=== PATIENT | female | born 1935 | race Caucasian/White ===

== ENCOUNTER 2019-11-06 16:18 | Inpatient (IN) | payer MEDICARE, MEDICAID ==
[~2019-11-06] VITALS: Ht 152.4 cm; Wt 84.4 kg
[~2019-11-06 16:18] MED LIST: ALEN70SO3 PO; ASPI-1497 PO; ATEN50TA PO; BUPR150T9 PO; DAILY-VITE PO; DIPH25CA83 PO; DONE10TA43 PO; FLUO40CA49 PO; GEMF600T5 PO; HYDR25TA PO; LEVO750T46 PO; PHEN95TA44 PO; RANI300T4 PO; SUCR1TAB PO
[2019-11-06 19:41] LABS: HEMATOCRIT. 36.5 % (36.0-48.0); HEMOGLOBIN. 12.5 g/dL (12.0-16.0); MEAN CORPUSCULAR HEMOGLOBIN 30.5 pg (28.0-32.0); MEAN CORPUSCULAR VOLUME 88.6 fL (81.0-99.0); MEAN PLATELET VOLUME 9.1 fl (7.4-10.4); PLATELET 229 x1000/uL (130-400); RED BLOOD CELL COUNT 4.12 mill/uL (4.2-5.4); RED CELL DISTRIBUTION WIDTH 13.2 % (11.6-14.6)
[2019-11-06 19:51] LABS: CHLORIDE 98 mEq/L (98-107)
[2019-11-06 20:38] LABS: PLATELET ESTIMATE NORMAL
[2019-11-06] MEDS ORDERED: POTASSIUM CHLORIDE 20MEQ/PACKET PO ONE (21:00)
[2019-11-06] MEDS ORDERED: AZITHROMYCIN 500 MG in DEXT 5% WATER 250 ML IV SCH (21:00)
[2019-11-06] MEDS ORDERED: CEFTRIAXONE 1 G PREMIX 50 ML IV ONE (21:00)
[2019-11-06] MEDS ORDERED: POTASSIUM CHLORIDE INJ 40 MEQ in DEXT 5% WATER 250 ML IV ONE (21:00)
[2019-11-06] MEDS ORDERED: MAGNESIUM 2 G PREMIX 50 ML IV ONE (21:00)
[2019-11-07 01:15] VITALS: BP 129/55
[2019-11-07] MEDS ORDERED: MEMA10TA55 MT (01:32)
[2019-11-07] MEDS ORDERED: GABA-529 MT (01:32)
[2019-11-07] MEDS ORDERED: PRAV20TA57 MT (01:32)
[2019-11-07 04:00] VITALS: BP 105/56
[2019-11-07] MEDS ORDERED: MEDICATION NOT ON FORMULARY EA (Ranitidine Hcl 300 MG) PO PRN (05:30)
[2019-11-07] MEDS: SODIUM CHLORIDE 0.9% 1,000 ML IV SCH ×2 (06:58→16:43)
[2019-11-07] MEDS: ASPIRIN 81MG EC TABLET PO SCH (08:45)
[2019-11-07] MEDS: MEMANTINE HCL 10MG TABLET PO SCH ×2 (08:45→16:41)
[2019-11-07] MEDS: GABAPENTIN 100MG CAPSULE PO SCH ×3 (08:45→16:41)
[2019-11-07] MEDS: DONEPEZIL HCL 10MG TABLET PO SCH (08:45)
[2019-11-07] MEDS: FAMOTIDINE 20MG TABLET PO SCH (08:45)
[2019-11-07] MEDS: ATENOLOL 50 MG TABLET PO SCH ×2 (08:46→08:48)
[2019-11-07] MEDS: FLUOXETINE HCL 20MG CAPSULE PO SCH (08:47)
[2019-11-07] MEDS: ENOXAPARIN 30MG/0.3ML SYR SUBCUT SCH (08:47)
[2019-11-07] MEDS ORDERED: ENOXAPARIN 40MG/0.4ML SYR SUBCUT SCH (09:00)
[2019-11-07] MEDS ORDERED: MEDICATION NOT ON FORMULARY EA (Fluoxetine Hcl 40 MG) PO SCH (09:00)
[2019-11-07] MEDS ORDERED: PHENAZOPYRIDINE HCL 100 MG PO SCH (09:00)
[2019-11-07] MEDS ORDERED: MEDICATION NOT ON FORMULARY EA (Pravastatin Sodium 1 TAB) MT SCH (09:00)
[2019-11-07] MEDS: IPRATROPIUM/ALBUTEROL 0.5-3(2.5)MG/3ML NEB HHN SCH ×4 (09:15→21:32)
[2019-11-07 09:55] LABS: BASOPHILS % 0.4 % (0.0-2.0); HEMATOCRIT. 36.8 % (36.0-48.0); HEMOGLOBIN. 12.5 g/dL (12.0-16.0); LYMPHOCYTES % 7.4 % (20.0-50.0); MEAN CORPUSCULAR HEMOGLOBIN 30.3 pg (28.0-32.0); MEAN CORPUSCULAR VOLUME 89.3 fL (81.0-99.0); MEAN PLATELET VOLUME 9.2 fl (7.4-10.4); MONOCYTES % 2.3 % (2.0-8.0); NEUTROPHILS % 87.9 % (40.0-76.0); PLATELET 238 x1000/uL (130-400); RED BLOOD CELL COUNT 4.12 mill/uL (4.2-5.4); RED CELL DISTRIBUTION WIDTH 13.7 % (11.6-14.6)
[2019-11-07] MEDS ORDERED: POTASSIUM CHLORIDE 20MEQ TABLET SR PO ONE (11:00)
[2019-11-07 12:00] VITALS: BP 113/51
[2019-11-07 16:00] VITALS: BP 108/49
[2019-11-07] MEDS: BUDESONIDE 0.5MG/2ML NEB HHN SCH (21:32)
[2019-11-07] MEDS: ATORVASTATIN CALCIUM 10MG TABLET PO SCH (21:45)
[2019-11-07] MEDS: GUAIFENESIN 600MG ER TABLET PO SCH (21:45)
[2019-11-07] MEDS: AZITHROMYCIN 500 MG in DEXT 5% WATER 250 ML IV SCH (21:46)
[2019-11-07] MEDS: CEFTRIAXONE 1 G PREMIX 50 ML IV SCH (23:28)
[2019-11-08 00:09] LABS: CLARITY URINE CLEAR (CLEAR); COLOR URINE YELLOW (YELLOW); KETONES URINE NEGATIVE (NEGATIVE); LEUKOCYTE ESTERASE URINE NEGATIVE (NEGATIVE); NITRITE URINE NEGATIVE (NEGATIVE); OCCULT BLOOD URINE NEGATIVE (NEGATIVE); PH URINE 6.5 (4.5-8.0); PROTEIN URINE 2+ (NEGATIVE); SPECIFIC GRAVITY URINE 1.015 (1.005-1.030)
[2019-11-08 00:46] VITALS: BP 110/45
[2019-11-08] MEDS: IPRATROPIUM/ALBUTEROL 0.5-3(2.5)MG/3ML NEB HHN SCH ×6 (01:00→21:27)
[2019-11-08 04:00] VITALS: BP 111/52
[2019-11-08 07:32] LABS: BASOPHILS % 0.2 % (0.0-2.0); EOSINOPHILS % 0.4 % (0.0-5.0); HEMATOCRIT. 32.5 % (36.0-48.0); HEMOGLOBIN. 11.2 g/dL (12.0-16.0); LYMPHOCYTES % 15.5 % (20.0-50.0); MEAN CORPUSCULAR HEMOGLOBIN 30.6 pg (28.0-32.0); MEAN CORPUSCULAR VOLUME 89.1 fL (81.0-99.0); MONOCYTES % 6.2 % (2.0-8.0); NEUTROPHILS % 77.7 % (40.0-76.0); PLATELET 232 x1000/uL (130-400); RED BLOOD CELL COUNT 3.65 mill/uL (4.2-5.4); RED CELL DISTRIBUTION WIDTH 13.5 % (11.6-14.6)
[2019-11-08] MEDS ORDERED: POTASSIUM CHLORIDE 20MEQ TABLET SR PO SCH (08:15)
[2019-11-08] MEDS: FAMOTIDINE 20MG TABLET PO SCH (08:49)
[2019-11-08] MEDS: ASPIRIN 81MG EC TABLET PO SCH (08:50)
[2019-11-08] MEDS: FLUOXETINE HCL 20MG CAPSULE PO SCH (08:50)
[2019-11-08] MEDS: GABAPENTIN 100MG CAPSULE PO SCH ×3 (08:50→17:57)
[2019-11-08] MEDS: MEMANTINE HCL 10MG TABLET PO SCH ×2 (08:50→17:57)
[2019-11-08] MEDS: DONEPEZIL HCL 10MG TABLET PO SCH (08:50)
[2019-11-08] MEDS: GUAIFENESIN 600MG ER TABLET PO SCH ×2 (08:50→20:26)
[2019-11-08] MEDS: ENOXAPARIN 30MG/0.3ML SYR SUBCUT SCH (08:51)
[2019-11-08] MEDS: ATENOLOL 50 MG TABLET PO SCH (08:51)
[2019-11-08] MEDS: SODIUM CHLORIDE 0.9% 1,000 ML IV SCH ×2 (08:52→21:30)
[2019-11-08] MEDS ORDERED: POTASSIUM CHLORIDE INJ 40 MEQ in DEXT 5% WATER 250 ML IV SCH (10:00)
[2019-11-08 12:00] VITALS: BP 140/71
[2019-11-08 13:13] LABS: BG BASE EXCESS -0.6 mmol/L (-2.0-2.0); BG CARBOXYHEMOGLOBIN 0.1 % (0.5-1.5); BG DEOXYHEMOGLOBIN 8.3 % (0.0-5.0); BG HCO3 ACT 22.9 mmol/L (22.0-26.0); BG METHEMOGLOBIN 0.2 % (0.0-1.5); BG OXYGEN SATURATION 91.7 % (92.0-98.5); BG OXYHEMOGLOBIN 91.4 % (94.0-97.0); BG PCO2 33.8 mmHg (35.0-45.0); BG PH 7.448 (7.350-7.450); BG SAMPLE SITE RIGHT RADIAL; BG TOTAL HEMOGLOBIN 12.1 g/dL (12.0-18.0); BG VENT MODE ROOM AIR
[2019-11-08 16:32] VITALS: BP 143/77
[2019-11-08] MEDS: ATORVASTATIN CALCIUM 10MG TABLET PO SCH (20:27)
[2019-11-08] MEDS ORDERED: HYDROCODONE/ACETAMINOPHEN 5/325MG TABLET PO PRN (20:45)
[2019-11-08] MEDS ORDERED: ACETAMINOPHEN 650MG/20.3ML UDC PO PRN ×2 (20:45→20:52)
[2019-11-08] MEDS: BUDESONIDE 0.5MG/2ML NEB HHN SCH (21:26)
[2019-11-08] MEDS: AZITHROMYCIN 500 MG in DEXT 5% WATER 250 ML IV SCH (22:21)
[2019-11-08] MEDS: CEFTRIAXONE 1 G PREMIX 50 ML IV SCH (23:53)
[2019-11-09] VITALS: BP 103/56
[2019-11-09] MEDS: IPRATROPIUM/ALBUTEROL 0.5-3(2.5)MG/3ML NEB HHN SCH ×4 (00:35→12:15)
[2019-11-09 04:00] VITALS: BP 165/71
[2019-11-09 06:54] LABS: HEMATOCRIT. 34.1 % (36.0-48.0); HEMOGLOBIN. 11.6 g/dL (12.0-16.0); MEAN CORPUSCULAR HEMOGLOBIN 30.4 pg (28.0-32.0); MEAN CORPUSCULAR VOLUME 89.2 fL (81.0-99.0); MEAN PLATELET VOLUME 8.8 fl (7.4-10.4); PLATELET 258 x1000/uL (130-400); RED BLOOD CELL COUNT 3.82 mill/uL (4.2-5.4); RED CELL DISTRIBUTION WIDTH 13.7 % (11.6-14.6)
[2019-11-09] MEDS: BUDESONIDE 0.5MG/2ML NEB HHN SCH (07:52)
[2019-11-09 08:00] VITALS: BP 141/68
[2019-11-09 08:08] LABS: CHLORIDE 107 mEq/L (98-107)
[2019-11-09 09:56] LABS: NUCLEATED RED BLOOD CELLS 1 /100 WBC; PLATELET ESTIMATE NORMAL
[2019-11-09] MEDS: ATENOLOL 50 MG TABLET PO SCH (09:59)
[2019-11-09] MEDS: ENOXAPARIN 30MG/0.3ML SYR SUBCUT SCH (09:59)
[2019-11-09] MEDS: FAMOTIDINE 20MG TABLET PO SCH (09:59)
[2019-11-09] MEDS: MEMANTINE HCL 10MG TABLET PO SCH (09:59)
[2019-11-09] MEDS: DONEPEZIL HCL 10MG TABLET PO SCH (09:59)
[2019-11-09] MEDS: FLUOXETINE HCL 20MG CAPSULE PO SCH (09:59)
[2019-11-09] MEDS: GABAPENTIN 100MG CAPSULE PO SCH ×2 (09:59→12:20)
[2019-11-09] MEDS: ASPIRIN 81MG EC TABLET PO SCH (09:59)
[2019-11-09] MEDS: GUAIFENESIN 600MG ER TABLET PO SCH (10:01)
[2019-11-09] MEDS: SODIUM CHLORIDE 0.9% 1,000 ML IV SCH (10:04)
[2019-11-09 12:00] VITALS: BP 134/58
[2019-11-09] MEDS ORDERED: GUAI600T26 MT (13:01)
[2019-11-09] MEDS ORDERED: LEVO500T2 MT (13:01)
[2019-11-09] MEDS ORDERED: ALBU18HF2 IH (13:01)
[2019-11-09] MEDS ORDERED: BENZ-16 MT (13:01)
[2019-11-09] MEDS ORDERED: IPRA3AMP9 NEB (13:01)
[2019-11-09] MEDS ORDERED: FLUT1DIS3 INH (13:01)
[2019-11-09 15:07] VITALS: BP 134/58
[2019-11-09 16:00] VITALS: BP 145/64
[2019-11-10 19:10] LABS: INFLUENZA A AB CF 1:32 (Neg:<1:8)
[2019-11-14 04:07] LABS: INFLUENZA A AB CF 1:32 (Neg:<1:8); INFLUENZA B AB CF 1:32 (Neg:<1:8)
== END 2019-11-09 16:15 | disposition home or self-care (01) | DRG 871 ==
LOC: ER 16:18 → 6WST 22:40 → EDBEDREQTM 22:49 → EDBEDREQ 22:49 → ENRESERV 23:26
PROVIDERS: ADMIT Internal Medicine; ATTEND Internal Medicine
DX: A41.9 Sepsis, unspecified organism (principal); E43 Unspecified severe protein-calorie malnutrition; J96.00 Acute respiratory failure, unspecified whether with hypoxia or hypercapnia; N17.0 Acute kidney failure with tubular necrosis; J18.9 Pneumonia, unspecified organism; E87.1 Hypo-osmolality and hyponatremia; J44.0 Chronic obstructive pulmonary disease with (acute) lower respiratory infection; J91.8 Pleural effusion in other conditions classified elsewhere; I50.40 Unspecified combined systolic (congestive) and diastolic (congestive) heart failure; E78.5 Hyperlipidemia, unspecified; E87.6 Hypokalemia; E87.70 Fluid overload, unspecified; I11.0 Hypertensive heart disease with heart failure; E11.9 Type 2 diabetes mellitus without complications; F03.90 Unspecified dementia, unspecified severity, without behavioral disturbance, psychotic disturbance, mood disturbance, and anxiety; F17.210 Nicotine dependence, cigarettes, uncomplicated; K52.9 Noninfective gastroenteritis and colitis, unspecified; Z90.49 Acquired absence of other specified parts of digestive tract; Z68.36 Body mass index [BMI] 36.0-36.9, adult; Z79.2 Long term (current) use of antibiotics; Z79.82 Long term (current) use of aspirin; Z79.899 Other long term (current) drug therapy; Z71.6 Tobacco abuse counseling
CPT/HCPCS: 36415; 36600; 71045; 80048; 80053; 81003; 82375; 82805; 82962; 83036; 83605; 83735; 83880; 84132; 84145; 84484; 85025; 86710; 87804; 93005; 93306; 94618; 94640; 96365; 99285; J0456; J0696; J1650; J3475; J3480; J7030; J7060; J7626